=== PATIENT | female | born 1965 | race Caucasian/White ===

== ENCOUNTER 2016-11-20 18:38 | Emergency (ER) | payer MEDICARE, MEDICAID ==
[2016-11-20 18:50] VITALS: TEMP 98.6; BMI 30.2
[2016-11-20] MEDS ORDERED: SODIUM CHLORIDE 0.9% 10 ML FLUSH FLUSH PRN (18:56)
[2016-11-20] MEDS ORDERED: NITROGLYCERINE 2 % OINTMENT PACK TOP STA (19:09)
[2016-11-20] MEDS ORDERED: NITROGLYCERINE 0.4 MG TAB SL STA (19:09)
[2016-11-20] MEDS ORDERED: ASPIRIN 325 MG TAB PO ONE (19:09)
[2016-11-20] MEDS ORDERED: NS 1,000 ML IV ONE (19:09)
[2016-11-20] MEDS ORDERED: ONDANSETRON HCL 4 MG/2 ML VIAL IV STA (19:09)
--- NOTE | 2016-11-20 19:15 | EDPRACDOC ---
- General Information Chief Complaint: Chest Pain Stated Complaint: CP SHARP STARTED 45 MIN AGO BROKE OUT IN A SWEAT Time Seen by Provider: 11/20/16 19:04 Information Source: Patient Mode of Arrival: Car Home Medications: Home Medications Valacyclovir HCl [Valtrex] 500 mg PO DAILY 07/10/15 Oxycodone HCl/Acetaminophen [Percocet 10-325 mg Tablet] 1 tab PO Q6 PRN Fluticasone/Vilanterol [Breo Ellipta 100-25 Mcg INH] 1 puff INH DAILY 04/09/16 Ketorolac Tromethamine [Toradol] 10 mg PO Q6H PRN #20 tab 11/20/16 Oxycodone HCl [Roxicodone] 5 mg PO Q4-6H PRN #5 tablet 11/20/16 Prednisone [Deltasone, Orasone] 50 mg PO DAILY #5 tab 11/20/16 Tiotropium Frontier [Spiriva Respimat] 2 puff INH DAILY 11/20/16 Allergies/Adverse Reactions: Allergies Allergy/AdvReac Type Severity Reaction Status Date / Time cephalexin monohydrate Allergy Intermediate Edema-Oral/ Verified 10/27/16 11:05 [From Keflex] Lip - History of Present 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 Chest Pain Location: Reports: Substernal, Left Chest Pain Radiation: Reports: Shoulder (L) Symptoms Occur: Reports: At Rest Cardiac Risk Factors: Reports: Smoker Cardiac History of: Reports: Similar Pain in Past (BRONCHITIS) Pain Description: Reports: Sharp Pain Severity: Moderate Pain Worsens With: Reports: Nothing Pain Improves With: Reports: Nothing Associated Signs and Symptoms: Reports: SOB, Nausea. Denies: Vomiting ED Past Medical History - History Reviewed Yes Nurses notes reviewed and agree except as marked - Patient Medical History Cardiac History: Reports: Hypercholesterolemia. 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 negative: Fever Respiratory: Shortness of Breath Cardiovascular: Chest Pain, Palpitations Gastrointestinal: Nausea. negative: Pain, Vomiting Genitourinary: negative: Dysuria - Physical Exam Constitutional: Alert Oriented to: Time, Person, Place Last recorded Vital Signs: Last Vital Signs Temp 98.6 F 11/20/16 18:45 Pulse 131 H 11/20/16 18:45 Resp 20 11/20/16 18:45 BP 160/86 11/20/16 18:45 Pulse Ox 96 11/20/16 18:45 Oxygen Pulse Oxygen Saturation 96 O2 Device Room Air Oxygen Flow Rate Fraction of Inspired Oxygen ( FIO2) - HEENT Head: negative: Deformity, Laceration Eye Exam: negative: Conjunctival Injection, Pale Conjunctiva Oropharynx: negative: Membranes Dry Nose: negative: Congestion, Discharge Neck: negative: Limited ROM - Respiratory/Cardiovascular Respiratory: Normal - CTA. negative: Accessory Muscle Use, Diminished, Tachypnea Cardiovascular: Tachycardia. negative: Bradycardia, Irregular - GI Auscultation: Normal Palpation: Normal Tenderness: Non tender - Musculoskeletal Extremities: Radial Pulse (PALPABLE) - Integumentary Skin: Warm, Dry. negative: Rash - Neurologic Memory Impaired: Normal Motor Function: Normal Mood Description: Anxious Thought: Coherent Perception: Normal ED Chest Pain Exam - Respiratory/Cardiovascular Chest Palpation: negative: Tender, Reproduces Pain - Action Patient received Aspirin within last 24 hours?: No ASA given in the ED: Yes - Results 11/20/16 19:30 11/20/16 19:30 - EKG EKG #1 EKG Time: 18:46 -: Yes EKG interpreted by me Rate: bpm: 134 Rhythm: ST ST: Nonsp Decision Time to Discharge: 22:59 - Departure Yes I personally saw and evaluated the patient. Disposition: Home Condition: Stable Final Diagnosis: Chest pain Instructions: Chest Pain (ED), Chest Wall Pain Education/Counseling Given To: Patient Education/Counseling Given Regarding: Diagnosis, Treatment, Prognosis, Follow Up Referrals: Khadar Orourke MD [Primary Care Provider] - Call for Appointment Prescriptions: Ketorolac Tromethamine [Toradol] 10 mg PO Q6H PRN #20 tab PRN Reason: Pain Oxycodone HCl [Roxicodone] 5 mg PO Q4-6H PRN #5 tablet PRN Reason: Breakthrough Pain Prednisone [Deltasone, Orasone] 50 mg PO DAILY #5 tab
--- NOTE | 2016-11-20 19:24 | DIRPT ---
CLINICAL DATA: 51-year-old female complaining of left-sided chest pain for the past 45 minutes. Shortness breath and nausea. EXAM: PORTABLE CHEST 1 VIEW COMPARISON: Chest x-ray 11/17/2015. FINDINGS: Lung volumes are normal. No consolidative airspace disease. No pleural effusions. No pneumothorax. No pulmonary nodule or mass noted. Pulmonary vasculature and the cardiomediastinal silhouette are within normal limits. IMPRESSION: No radiographic evidence of acute cardiopulmonary disease. Electronically Signed By: Rashel Larry M.D. On: 11/20/2016 19:21
[2016-11-20 19:43] LABS: AUTOMATED BASOPHIL 0.8 % (0-2); AUTOMATED EOSINOPHIL 1.1 % (0-5); AUTOMATED LYMPH 17.3 % (17-44); AUTOMATED MONOCYTE 10.1 % (3-10); AUTOMATED NEUTROPHIL 70.7 % (45-76); MPV 8.4 fL (7.4-10.4)
[2016-11-20 19:49] LABS: BLOOD UREA NITROGEN 12 MG/DL (7-17); CALCIUM 10.3 MG/DL (8.4-10.2); CALCULATED OSMOLALITY 268 MOs/Kg (270-290); CHLORIDE 105 mEq/L (98-107); GLUCOSE 105 MG/DL (70-99); SODIUM LEVEL 139 mEq/L (137-146); TOTAL PROTEIN 8.1 G/DL (6.3-8.2)
[2016-11-20 19:51] LABS: PT-INR 0.9
[2016-11-20] MEDS ORDERED: MORPHINE 4 MG/ML INJECTION IV ONE (19:58)
[2016-11-20 20:24] LABS: ALL NEG? NO
[2016-11-20 20:30] LABS: MDMA* NEG (NEGATIVE); METHAMPHETAMINES NEG (NEGATIVE); OXYCODONE *POSITIVE* (NEGATIVE)
[2016-11-20] MEDS ORDERED: KETOROLAC TROMETH 30 MG/ML VIAL IV STA (20:33)
[2016-11-20] MEDS ORDERED: OXYCODONE HCL 5 MG TABLET PO STA (22:10)
[2016-11-20 22:27] VITALS: BP 124/67
[2016-11-20 22:30] VITALS: PULSE 96
== END 2016-11-20 23:15 | disposition home or self-care (01) ==
LOC: ED 18:38
DX: R07.9 Chest pain, unspecified (principal); E78.00 Pure hypercholesterolemia, unspecified; J44.9 Chronic obstructive pulmonary disease, unspecified; Z79.899 Other long term (current) drug therapy
CPT/HCPCS: 36415; 71010; 80053; 80307; 84484; 85025; 85379; 85610; 85730; 93005; 96361; 96374; 96375; 99285; A9270; J1885; J2270; J2405; J3490